=== PATIENT | female | born 1965 | race Caucasian/White ===

== ENCOUNTER 2020-06-15 10:49 | Outpatient (CLI) | payer OTHER, SELFPAY ==
--- NOTE | ~2020-06-15 | XR_ITS ---
XR elbow LT min 3V DATE: 06/15/2020 11:10 INDICATION: Left elbow pain following fall one month ago TECHNIQUE: 4 views COMPARISON: None FINDINGS: No fracture or dislocation or joint effusion. IMPRESSION: Negative Reviewed, dictated and finalized at location B. OPERATOR IMPRESSION: Negative
== END 2020-06-15 10:50 | disposition home or self-care (01) ==
LOC: ANHIMG 10:52
PROVIDERS: PCP Psychiatry & Neurology Neurology; Visit Provider Psychiatry & Neurology Neurology
DX: M25.522 Pain in left elbow (principal)
CPT/HCPCS: 73080